=== PATIENT | male | born 1940 | race Caucasian/White ===

== ENCOUNTER 2019-10-21 13:06 | Outpatient (CLI) | payer MEDICARE ==
--- NOTE | 2019-10-21 16:51 | CT ---
EXAM: CT NECK SOFT TISSUE POST CONTRAST: HISTORY:Right ear scar with lumps in the right neck. COMPARISON:None CORRELATION:None FINDINGS: Brain parenchyma: No pathologic enhancement of the visualized brain parenchyma. [place]: There is asymmetric dilatation of the right carotid terminus. There is prominence o f the right M1 segment with respect to the contralateral side. There is a possible fusiform aneurysm involving the right M1 terminus/right MCA bifurcation, incompletely evaluated (axial image # 26, coronal image 45 and sagittal image 33). Sinuses: Adequate aeration of the visualized paranasal sinuses and mastoid air cells. Orbits: Bilateral ocular lens implants are appropriate located. Both globes are intact. Retrobulbar f at is preserved. There is asymmetric prominence of the right ophthalmic vein. 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 Conventional angiography i s recommended. Coronal images do suggest possible dehiscence of the roof of the right orbit (coronal images 39 and 40). Nasopharynx:Adequate aeration. No mucosal abnormality. Oral cavity:Aerodigestive tract is patent. No mucosal abnormality. Limited evaluation of the oral cav ity due to dental amalgam artifact. Midline fatty raphae of the tongue is preserved. Hypopharynx: No mucosal abnormality. Larynx: No mucosal abnormality. Paraspinal muscles: Symmetric attenuation of the paraspinal muscles and symmetric attenuation of the sternocleidomastoid muscles.. Parotid and salivary glands: Symmetric attenuation of the parotid and submandibular glands Thyroid gland: Unremarkable. Spine: Vertebral body height is maintained. No fracture. No significant central canal stenosis or sig nificant neural foraminal narrowing. Limited evaluation due to technique. Lymph nodes: Enlarged, necrotic right level V lymph node deep to the sternocleidomastoid muscle measu res 4.2 x 2.9 cm. Lung apices and upper mediastinum: Groundglass opacities and bilateral pleural effusions. There are e nlarged mediastinal lymph nodes, incompletely evaluated. Subcarinal lymphadenopathy is also noted. There is left axillary lymphadenopathy. IMPRESSION: 1. 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 Based on CT, a definite mucosal-based lesion is not appreciated. Direct visualization with ENT consultation is recommended 2. Possible dehiscence of the root of the right orbit with a vascular connection between a branch of the right middle cerebral artery and a ophthalmic artery. There is resultant dilatation of the right ophthalmic vein. Conventional angiography is recommended. Results conveyed to Dr. Kevin Funez 10/22/2019 at 11:42 AM Code CR Transcribed Date/Time: 10/21/2019 5:39 PM
== END 2019-10-21 13:07 | disposition home or self-care (01) ==
LOC: SCSCT 13:06
PROVIDERS: ATTEND Radiology Radiation Oncology
DX: C44.222 Squamous cell carcinoma of skin of right ear and external auricular canal (principal); C77.0 Secondary and unspecified malignant neoplasm of lymph nodes of head, face and neck; I86.8 Varicose veins of other specified sites; R59.0 Localized enlarged lymph nodes
CPT/HCPCS: 70490

== ENCOUNTER 2019-10-30 08:12 | Day surgery (SDC) | payer MEDICARE ==
[2019-10-30] MEDS ORDERED: Sodium Bicarbonate 2.5 MEQ/5 ML VIAL ONE (08:56)
[2019-10-30] MEDS ORDERED: Lidocaine 1% PF 5 ML VIAL ONE (08:56)
[2019-10-30 11:55] VITALS: BP 142/86; TEMP 97.6
[2019-10-30 12:06] VITALS: BMI 23.5
--- NOTE | 2019-11-03 14:45 | ULT ---
"PRELIMINARY REPORT" PROCEDURE: Ultrasound-guided biopsy/fine-needle aspiration of large necrotic lymph node right neck Ultrasound guided biopsy/fine-needle aspiration of right inguinal lymph node PROVIDED CLINICAL HISTORY: Patient with history of squamous cell carcinoma. Patient currently has large necrotic right neck lymp h node and bilateral inguinal lymphadenopathy. Biopsy of the large necrotic lymph node is well as a more superficial lymph node right inguinal region was requested. COMPARISON: CT abdomen and pelvis on 10/26/2019 TECHNIQUE: The procedure including the risks and complications were explained to the patient and the patient's d linnea, and informed consent was obtained. Limited sonographic evaluation of the right neck was performed demonstrating a large necrotic lesion. Patient was placed in left lateral decubitus positio n, and the right neck was meticulously prepped and draped in usual sterile fashion. The skin and subcutaneous tissues were infiltrated with buffered 1% lidocaine for local anesthesia at the intended puncture site. Utilizing concurrent real-time ultrasound guidance, a 20-gauge Franseen needle was advanced, and tissue as well as small amount of fluid was obtained. Initial touch prep indicated necr otic material with occasional atypical cell. As a result, a total of two 25-gauge fine-needle aspiration specimens were obtained followed by an additional fine-needle aspiration with 20-gauge Fra nseen needle. Hemostasis was achieved with direct pressure, and a dry sterile dressing was placed.. Patient was then placed in the supine position, and limited ultrasound of the right inguinal region w as performed. A few lymph nodes are seen in the right inguinal region with a more easily accessible superficial lymph node in the right inguinal region. The area was marked and meticulously prepped and draped in usual sterile fashion. Skin and subcutaneous tissues were infiltrated with buffered 1% lidocaine for local anesthesia at the intended puncture site. A small skin incision was made. Utilizi ng concurrent real-time ultrasound guidance, a total of three 20-gauge fine-needle aspiration specimens were obtained utilizing a 20-gauge Franseen needle. After the needle was removed, hemostasi s was achieved with direct pressure, and a dry sterile dressing was placed. Patient tolerated the procedure well and without immediate complication. Patient was discharged in st able condition. IMPRESSION: 1. Technically successful ultrasound-guided fine-needle aspiration of a large necrotic lymph node rig ht neck as well as a right inguinal lymph node. Initial touch preps from the fine-needle aspiration of the large necrotic lymph node demonstrated necrotic material with occasional atypical cell. Final pathology report is pending. Transcribed Date/Time: 11/03/2019 2:45 PM
== END 2019-10-30 10:30 | disposition home or self-care (01) ==
LOC: ULT 08:12
PROVIDERS: ATTEND Radiology Radiation Oncology
PROC: 07BH3ZX Excision of Right Inguinal Lymphatic, Percutaneous Approach, Diagnostic (ICD-10-PCS; principal; 2019-10-30)
PROC: 07B13ZX Excision of Right Neck Lymphatic, Percutaneous Approach, Diagnostic (ICD-10-PCS; 2019-10-30)
DX: I88.9 Nonspecific lymphadenitis, unspecified (principal); R59.0 Localized enlarged lymph nodes; I10 Essential (primary) hypertension; C44.222 Squamous cell carcinoma of skin of right ear and external auricular canal; Z87.891 Personal history of nicotine dependence; Z79.899 Other long term (current) drug therapy
CPT/HCPCS: 38505; 88172; 88173; 88177; 88184; 88305

== ENCOUNTER 2019-12-01 09:15 | Day surgery (SDC) | payer MEDICARE ==
[~2019-12-01 09:15] MED LIST: CARBOPLATIN IVPB SCH; Dexamethasone Sod Phosphate 10 MG, Ondansetron 2MG/ML MDV 10 MG in Sodium Chloride 0.9%... IVPB SCH; PACLitaxel 100 MG in Sodium Chloride 0.9% 250 ML 250 ML IVPB SCH; SODIUM CHLORIDE 0.9% IVPB SCH
[2019-12-01] MEDS ORDERED: Sodium Chloride 0.9% 20 ML ONE (09:44)
[2019-12-01 11:08] VITALS: BP 131/68; TEMP 98.6
== END 2019-12-01 14:16 | disposition home or self-care (01) ==
LOC: ONC/OP 09:15
PROVIDERS: ATTEND Internal Medicine Hematology & Oncology
DX: Z51.11 Encounter for antineoplastic chemotherapy (principal); C44.222 Squamous cell carcinoma of skin of right ear and external auricular canal; C83.05 Small cell B-cell lymphoma, lymph nodes of inguinal region and lower limb
CPT/HCPCS: 36415; 80053; 96375; 96413; 96417; J1100; J2405; J7050; J9045; J9267

== ENCOUNTER 2019-12-08 09:06 | Day surgery (SDC) | payer MEDICARE ==
[~2019-12-08 09:06] MED LIST changes: +Sodium Chloride 0.9% 1,000 ML IV SCH
[2019-12-08] MEDS ORDERED: Sodium Chloride 0.9% 20 ML ONE (09:10)
[2019-12-08 09:47] VITALS: BP 111/60; TEMP 98.7
== END 2019-12-08 12:34 | disposition home or self-care (01) ==
LOC: ONC/OP 09:06
PROVIDERS: ATTEND Internal Medicine Hematology & Oncology
DX: Z51.11 Encounter for antineoplastic chemotherapy (principal); C83.05 Small cell B-cell lymphoma, lymph nodes of inguinal region and lower limb; C44.222 Squamous cell carcinoma of skin of right ear and external auricular canal
CPT/HCPCS: 96361; 96375; 96413; 96417; J1100; J2405; J7050; J9045; J9267

== ENCOUNTER 2019-12-15 09:45 | Day surgery (SDC) | payer MEDICARE, OTHER ==
[~2019-12-15 09:45] MED LIST changes: -Sodium Chloride 0.9% 1,000 ML IV SCH
[2019-12-15] MEDS ORDERED: Sodium Chloride 0.9% 20 ML ONE (09:52)
[2019-12-15 10:38] VITALS: BP 103/60; TEMP 97.5
== END 2019-12-15 13:24 | disposition home or self-care (01) ==
LOC: ONC/OP 09:45
PROVIDERS: ATTEND Internal Medicine Hematology & Oncology
DX: Z51.11 Encounter for antineoplastic chemotherapy (principal); C44.222 Squamous cell carcinoma of skin of right ear and external auricular canal; C83.05 Small cell B-cell lymphoma, lymph nodes of inguinal region and lower limb
CPT/HCPCS: 36415; 80053; 96375; 96413; 96417; J1100; J2405; J7050; J9045; J9267

== ENCOUNTER 2019-12-22 09:42 | Day surgery (SDC) | payer MEDICARE, OTHER ==
[2019-12-22 11:39] VITALS: BP 114/60; TEMP 98.2
== END 2019-12-22 13:18 | disposition home or self-care (01) ==
LOC: ONC/OP 09:42
PROVIDERS: ATTEND Internal Medicine Hematology & Oncology
DX: Z51.11 Encounter for antineoplastic chemotherapy (principal); C44.222 Squamous cell carcinoma of skin of right ear and external auricular canal; C83.05 Small cell B-cell lymphoma, lymph nodes of inguinal region and lower limb
CPT/HCPCS: 77386; 96411; 96413; 96417; J1100; J2405; J7050; J9045; J9267

== ENCOUNTER 2019-12-29 09:20 | Day surgery (SDC) | payer MEDICARE, OTHER ==
[2019-12-29] MEDS ORDERED: Sodium Chloride 0.9% 1,000 ML IV SCH (09:30)
[2019-12-29] MEDS ORDERED: Sodium Chloride 0.9% 20 ML ONE (09:32)
[2019-12-29 10:08] VITALS: BP 108/56; TEMP 97.7
== END 2019-12-29 13:29 | disposition home or self-care (01) ==
LOC: ONC/OP 09:20
PROVIDERS: ATTEND Internal Medicine Hematology & Oncology
DX: Z51.11 Encounter for antineoplastic chemotherapy (principal); C44.222 Squamous cell carcinoma of skin of right ear and external auricular canal; C83.05 Small cell B-cell lymphoma, lymph nodes of inguinal region and lower limb
CPT/HCPCS: 77386; 80053; 96361; 96375; 96413; 96417; J1100; J2405; J7050; J9045; J9267

== ENCOUNTER 2020-01-08 09:48 | Day surgery (SDC) | payer MEDICARE, OTHER | END 2020-01-08 13:54 | disposition home or self-care (01) | LOC: ONC/OP 09:48 | PROVIDERS: ATTEND Internal Medicine Hematology & Oncology | DX: Z51.11 Encounter for antineoplastic chemotherapy (principal); C44.222 Squamous cell carcinoma of skin of right ear and external auricular canal; C83.05 Small cell B-cell lymphoma, lymph nodes of inguinal region and lower limb | CPT/HCPCS: 77386; 80048; 96375; 96413; 96417; J1100; J2405; J7050; J9045; J9267 ==

== ENCOUNTER 2020-03-25 20:08 | Inpatient (IN) | payer MEDICARE ==
[~2020-03-25 20:08] MED LIST changes: -CARBOPLATIN IVPB SCH; -Dexamethasone Sod Phosphate 10 MG, Ondansetron 2MG/ML MDV 10 MG in Sodium Chloride 0.9%... IVPB SCH; +Iopamidol-370 76% 500 ML 1 ML ONE; -PACLitaxel 100 MG in Sodium Chloride 0.9% 250 ML 250 ML IVPB SCH; -SODIUM CHLORIDE 0.9% IVPB SCH
[2020-03-25] MEDS ORDERED: Ondansetron PF 4 MG/2 ML Vial ONE (20:48)
[2020-03-25 20:52] LABS: #Lymphocytes 1.3 thou/uL (1.20-3.40); #Monocytes 0.9 thou/uL (0.11-0.59); #Neutrophils 5.3 thou/uL (1.40-6.50); %Basophils 0.4 % (0.0-1.0); %Eosinophils 0.5 % (0.0-10.0); %Lymphocytes 17.7 % (21.0-51.0); %Monocytes 11.5 % (0.0-10.0); Hemoglobin 11.8 g/dL (14.0-18.0); Mean Corpuscular HGB CONC 33.2 g/dL (32.0-36.0); Mean Corpuscular Hemoglobin 31.7 pg (27.0-31.0); Mean Corpuscular Volume 95.5 fL (78.0-98.0); Mean Platelet Volume 7.4 fL (7.4-10.4); Platelet Count 283 thou/uL (130-400); RBC Distribution Width 14.3 % (11.5-14.5); Red Blood Cell (RBC) Count 3.71 mill/uL (4.70-6.10); White Blood Cell (WBC) Count 7.5 thou/uL (4.8-10.8)
--- NOTE | 2020-03-25 20:52 | RAD ---
EXAM: CHEST ONE VIEW PORTABLE: 03/25/20 HISTORY: Nausea and vomiting. Constipation. COMPARISON: 03/20/20. Postop midline sternotomy. Extensive tortuosity and ectatic changes of the thoracic aorta, evidence f or changes from a prior dissection. No confluent pneumonia, overt edema, or pleural effusion. IMPRESSION: Postop midline sternotomy. Mild cardiomegaly. Fairly extensive stable chronic dilatation of the desc ending aorta. Evidence for chronic dissection documented on prior CT. POS: RRE
[2020-03-25 21:20] LABS: ALT (SGPT) 13 U/L (8-55); AST (SGOT) 18 U/L (5-34); Albumin 3.2 g/dL (3.4-4.8); Alkaline Phosphatase 74 U/L (40-110); Anion Gap 22 mmol/L (10-20); BUN (Urea Nitrogen) 35 mg/dL (8.4-25.7); Bilirubin, Total 1.2 mg/dL (0.2-1.2); Calc. Creatinine Clearance 0 mL/min (70-130); Calcium 8.8 mg/dL (7.8-10.44); Carbon Dioxide 20 mmol/L (23-31); Chloride 95 mmol/L (98-107); Globulin 3.5 g/dL (2.4-3.5); Glucose 102 mg/dL (83-110); Lipase 18 U/L (8-78); Potassium 3.7 mmol/L (3.5-5.1); Protein, Total 6.7 g/dL (5.8-8.1); Sodium 133 mmol/L (136-145)
[2020-03-25] MEDS ORDERED: Acetaminophen 500 MG TAB ONE ×2 (21:57→22:01)
[2020-03-25] MEDS ORDERED: Acetaminophen 650 MG Suppository ONE (21:59)
--- NOTE | 2020-03-25 22:06 | CT ---
CT Abdomen Pelvis W Con: 03/25/2020 9:40 PM CLINICAL INFORMATION: Abdominal pain and vomiting COMPARISON: 03/20/2020 TECHNIQUE: Multiple contiguous axial images were obtained and a CT of the abdomen and pelvis with IV contrast. C oronal and sagittal reformats were performed. FINDINGS: Lower Chest: Left lower lobe calcified granuloma Abdomen: Liver: Scattered calcified granulomas. Bile Ducts: Normal caliber. Gallbladder: Contracted around gallstones Pancreas: within normal limits. Spleen: within normal limits. Adrenals: within normal limits. Kidneys: Bilateral renal cysts measuring up to 4.2 cm in size. Pelvis: Reproductive Organs: No pelvic masses. Ureters: within normal limits. Bladder: within normal limits. Peritoneum: No ascites or free air, no fluid collection. Bowel: Multiple enlarged small bowel loops are seen in the abdomen. A transition point is again seen in the right lower quadrant of the abdomen. Normal appendix. Scattered diverticula in the colon. Mesentery and Retroperitoneum: No enlarged mesenteric or retroperitoneal lymph nodes. Vessels: There is stable aneurysmal dilatation of the aorta measuring 5.8 cm in greatest dimension. T here is a stable dissection of the abdominal aorta extending into the common iliac arteries. Abdominal Wall: Stable 3.5 cm left inguinal hernia containing sigmoid colon. Bones: Degenerative changes in the spine. IMPRESSION: 1. Small bowel obstruction with transition point in the right lower quadrant of the abdomen. 2. Stable aortic dissection and aneurysm 3. Stable left inguinal hernia 4. Bilateral renal cysts 5. Cholelithiasis 6. Diverticulosis
--- NOTE | 2020-03-25 23:02 | RAD ---
EXAM: Single view of the chest HISTORY: Vomiting and hiccups. NG tube placement COMPARISON: 03/25/2020 at 8:41 PM FINDINGS: Single view of the chest shows an enlarged but stable cardiomediastinal silhouette. The aor ta appears prominent. The patient is status post sternotomy. Diffuse increased visual markings are present. There is an NG tube with its tip coursing off the inferior aspect of the film. No acute osse ous abnormality. IMPRESSION: NG tube likely located in the stomach.
[2020-03-25] MEDS ORDERED: Sodium Chloride 0.9% 1,000 ML IV SCH (23:45)
[2020-03-26 00:14] VITALS: BMI 24.0
[2020-03-26] MEDS ORDERED: Labetalol HCl 100 MG/20 ML VIAL SLOW IVP PRN (01:08)
[2020-03-26] MEDS ORDERED: Acetaminophen 325 MG TAB PO PRN (01:08)
[2020-03-26] MEDS ORDERED: hydrALAZINE 20 MG/ML VIAL SLOW IVP PRN (01:08)
[2020-03-26] MEDS ORDERED: Guaifenesin DM 100-10/5 ML UDCUP PO PRN (01:08)
[2020-03-26] MEDS ORDERED: cloNIDine 0.1 MG TAB PO PRN (01:08)
[2020-03-26] MEDS ORDERED: HYDROcodone/Acetaminophen 5/325 mg Tablet PO PRN (01:08)
[2020-03-26] MEDS ORDERED: Promethazine HCl 12.5 MG in Sodium Chloride 0.9% 50 ML IVPB PRN (01:14)
[2020-03-26] MEDS ORDERED: Ondansetron PF 4 MG/2 ML Vial IVP PRN (01:14)
[2020-03-26] MEDS ORDERED: Electrolyte Replacement Protocol 1 EACH FS SCH (01:15)
--- NOTE | 2020-03-26 01:17 | PDOC.HHP ---
Hospitalist JAMESON Abdominal pain History of Present Illness: Patient is an 79 year old male with PMH skin cancer who presents to ED for constipation, abdominal pain. Patient was admitted at [facility] earlier this week for small bowel obstruction, did not actually have a BM but had an enema and NGT and was discharged after 3 days without surgery. He failed to improve at home and returned to ED today. He has been vomiting, reports abdominal pain. Last BM was a week ago. In ED, Dr Mercado of surgery called and will follow with us, he recommended NGT which was placed. vitals w/ pulse 100, Tmax 102. Ct A/P confirmed continued SBO. Allergies/Adverse Reactions: Allergy/AdvReac Type Severity Reaction Status Date / Time No Known Drug Allergies Allergy Verified 03/26/20 00:15 Home Medications: Medication Instructions Recorded Confirmed Type Ibuprofen 800 mg PO Q8HR PRN 10/30/19 03/26/20 History Lisinopril [Zestril] 20 mg PO DAILY 10/30/19 03/26/20 History Polyethylene Glycol 3350 [Miralax] 17 gm PO DAILY PRN #30 pk 03/22/20 03/26/20 Rx Prochlorperazine 25 mg RC DAILY 03/26/20 03/26/20 History Past History: PMHx: skin cancer, and "swollen lymph node" poss lymphoma-radiation last tx 10 weeks ago. PSHx: HEART SX, SON SAYS IT WAS TEARS 10 YEARS AGO. FHx: reviewed no relevant FH Social: Patient denies alcohol use, Patient denies drug use, Patient has no smoking history, Lives at home, alone. Hospitalist JAMESON SIMONS Constitutional: reports: fever, chills. denies: sweats, weakness, malaise, other Eyes: denies: pain, vision change, conjunctivae inflammation, eyelid inflammation, redness, other ENT: denies: ear pain, ear discharge, nose pain, nose discharge, nose congestion, mouth pain, mouth swelling, throat pain, throat swelling, other Respiratory: denies: cough, dry, shortness of breath, hemoptysis, SOB with excertion, pleuritic pain, sputum, wheezing, other Cardiovascular: denies: chest pain, palpitations, orthopnea, paroxysmal noc. dyspnea, edema, light headedness, other Gastrointestinal: reports: nausea, vomiting, abdominal pain, constipation. denies: diarrhea, melena, hematochezia, other Genitourinary: denies: dysuria, frequency, incontinence, hematuria, retention, other Musculoskeletal: denies: neck pain, shoulder pain, arm pain, back pain, hand pain, leg pain, foot pain, other Skin: denies: rash, lesions, clover, bruising, other Neurological: denies: weakness, numbness, incoordination, change in speech, confusion, seizures, other All other systems reviewed; all pertinent +/- noted in HPI/Subj Hospitalist Exam Vitals: Vital Signs (12 hours) Temp Pulse Resp BP Pulse Ox 03/26/20 00:13 97.4 F L 94 18 109/61 95 Weight Weight 153 lb 9.6 oz General Appearance: NAD, awake alert Eye: PERRL, anicteric sclera ENT: normocephalic atraumatic, no oropharyngeal lesions, moist mucosa Neck: supple, symmetric, no JVD, no thyromegaly, no lymphadenopathy, no carotid bruit Heart: RRR, no murmur, no gallops, no rubs, normal peripheral pulses Respiratory: CTAB, no wheezes, no rales, no ronchi, normal chest expansion, no tachypnea, normal percussion Gastrointestinal: soft, no palpable masses, no hepatomegaly, no splenomegaly, no bruit, no guarding, no rigidity, tender to palpation, distended Extremities: no cyanosis, no clubbing, no edema Skin: normal turgor, no lesions, no rashes Neurological: cranial nerve grossly intact, normal sensation to touch, no weakness, no focal deficits, no new deficit Musculoskeletal: normal tone, normal strength, no muscle wasting Psychiatric: normal affect, normal behavior, A&O x 3 Hospitalist Results Result Diagrams: 03/25/20 20:36 03/25/20 20:36 Lab results: Laboratory Last Values WBC 7.5 thou/uL (4.8-10.8) 03/25/20 20:36 RBC 3.71 mill/uL (4.70-6.10) L 03/25/20 20:36 Hgb 11.8 g/dL (14.0-18.0) L 03/25/20 20:36 Hct 35.5 % (42.0-52.0) L 03/25/20 20:36 MCV 95.5 fL (78.0-98.0) 03/25/20 20:36 MCH 31.7 pg (27.0-31.0) H 03/25/20 20:36 MCHC 33.2 g/dL (32.0-36.0) 03/25/20 20:36 RDW 14.3 % (11.5-14.5) 03/25/20 20:36 Plt Count 283 thou/uL (130-400) 03/25/20 20:36 MPV 7.4 fL (7.4-10.4) 03/25/20 20:36 Neutrophils % 70.0 % (42.0-75.0) 03/25/20 20:36 Lymphocytes % 17.7 % (21.0-51.0) L 03/25/20 20:36 Monocytes % 11.5 % (0.0-10.0) H 03/25/20 20:36 Eosinophils % 0.5 % (0.0-10.0) 03/25/20 20:36 Basophils % 0.4 % (0.0-1.0) 03/25/20 20:36 Neutrophils # 5.3 thou/uL (1.40-6.50) 03/25/20 20:36 Lymphocytes # 1.3 thou/uL (1.20-3.40) 03/25/20 20:36 Monocytes # 0.9 thou/uL (0.11-0.59) H 03/25/20 20:36 Eosinophils # 0.0 thou/uL (0.0-0.7) 03/25/20 20:36 Basophils # 0.0 thou/uL (0.0-0.2) 03/25/20 20:36 Sodium 133 mmol/L (136-145) L 03/25/20 20:36 Potassium 3.7 mmol/L (3.5-5.1) 03/25/20 20:36 Chloride 95 mmol/L (98-107) L 03/25/20 20:36 Carbon Dioxide 20 mmol/L (23-31) L 03/25/20 20:36 Anion Gap 22 mmol/L (10-20) H 03/25/20 20:36 BUN 35 mg/dL (8.4-25.7) H 03/25/20 20:36 Creatinine 1.53 mg/dL (0.7-1.3) H 03/25/20 20:36 Estimated GFR (MDRD) 44 03/25/20 20:36 Glucose 102 mg/dL (83-110) 03/25/20 20:36 Calcium 8.8 mg/dL (7.8-10.44) 03/25/20 20:36 Total Bilirubin 1.2 mg/dL (0.2-1.2) 03/25/20 20:36 AST 18 U/L (5-34) 03/25/20 20:36 ALT 13 U/L (8-55) 03/25/20 20:36 Alkaline Phosphatase 74 U/L (40-110) 03/25/20 20:36 Serum Total Protein 6.7 g/dL (5.8-8.1) 03/25/20 20:36 Albumin 3.2 g/dL (3.4-4.8) L 03/25/20 20:36 Globulin 3.5 g/dL (2.4-3.5) 03/25/20 20:36 Albumin/Globulin Ratio 0.9 g/dL (1.2-2.2) L 03/25/20 20:36 Lipase 18 U/L (8-78) 03/25/20 20:36 Additional comment: labs, imaging reports, ED documents reviewed Hospitalist H&P A/P Plan: Patient is an 79 year old male with PMH skin cancer who presents to ED for constipation, abdominal pain. # abdominal pain # nausea, vomiting # small bowel obstruction Patient was admitted at [place] earlier this week for small bowel obstruction, did not have a BM but had an enema and NGT and was discharged after 3 days without surgery. He failed to improve at home and returned to ED today. He has been vomiting, reports abdominal pain. Last BM was a week ago. In ED, Dr Mercado of surgery called and will follow with us, he recommended NGT which was placed. vitals w/ pulse 100, Tmax 102. Ct A/P confirmed continued SBO. - admit to floor - consult surgery - NPO - IVF - monitor closely, no indications for emergent surgery - NGT to [facility] - PRN pain and nausea medications # hyponatremia # metabolic acidosis # NUNO - suspect due to dehydration, vomiting, poor PO intakte last week - IVF, treat SBO as above # DVT/GI ppx
[2020-03-26] MEDS: Sodium Chloride 0.9% 1,000 ML IV SCH ×2 (03:57→13:57)
[2020-03-26 05:41] LABS: Anion Gap 16 mmol/L (10-20); BUN (Urea Nitrogen) 35 mg/dL (8.4-25.7); Calc. Creatinine Clearance 44 mL/min (70-130); Calcium 7.6 mg/dL (7.8-10.44); Carbon Dioxide 22 mmol/L (23-31); Chloride 99 mmol/L (98-107); Glucose 88 mg/dL (83-110); Magnesium 1.7 mg/dL (1.6-2.6); Potassium 3.1 mmol/L (3.5-5.1); Sodium 134 mmol/L (136-145)
[2020-03-26] MEDS ORDERED: Magnesium 2 GM/50 ML 2 GM in Premix Bag 1 BAG IVPB SCH (08:30)
[2020-03-26 08:33] LABS: Phosphorus 4.7 mg/dL (2.3-4.7)
[2020-03-26] MEDS: D5 1/2 NS w/20 mEq KCL 1,000 ML IV SCH ×3 (08:34→21:05)
--- NOTE | 2020-03-26 08:46 | CON ---
DATE OF CONSULTATION: 03/26/2020 CHIEF COMPLAINT: Small bowel obstruction. HISTORY OF PRESENT ILLNESS: This is an 79-year-old male, who was recently discharged from the [facility] for similar symptoms. He presents to the emergency room last night with nausea, abdominal bloating. This is associated with diffuse abdominal pain. The pain is described as dull ache. They were thinking at his previous hospitalization this maybe related to constipation. It has been a week since he has had a bowel movement, admitted to the hospital overnight. He is hemodynamically stable. He is more comfortable and soft this morning. The patient is severely hearing impaired and that makes the history taking very difficult. PAST MEDICAL HISTORY: Includes squamous cell cancer, currently undergoing chemoradiation and includes aortic aneurysm. PAST SURGICAL HISTORY: Open heart surgery. SOCIAL HISTORY: No smoking or alcohol. Lives at home. HOME MEDICATIONS: 1. Lisinopril. 2. MiraLAX. 3. Ibuprofen. REVIEW OF SYSTEMS: 10-system review of systems is otherwise negative unless described above. PHYSICAL EXAMINATION: VITAL SIGNS: Pulse is 88, respirations are 16, blood pressure is 95/57. He is afebrile. NG tube 600 mL overnight. CHEST: Clear. HEART: Regular rate. ABDOMEN: Soft, nontender, nondistended. No abdominal or no obvious hernias present. EXTREMITIES: No ischemia or edema to extremities. LABORATORY DATA: White blood cell count last night was 7, creatinine 1.3. CT scan shows aortic aneurysm, dilated small bowel distally decompressed, nonobstructing left inguinal hernia, but has some sigmoid colon in it, but does not appear obstructed. ASSESSMENT: Small bowel obstruction. PLAN: NG tube today. Gastrografin small-bowel follow-through tomorrow. 45 minutes spent in seeing patient, review of x-rays, and discussion. Job ID: [id number]
[2020-03-26 09:06] LABS: Band 12 % (5-11); Eosinophils 2 % (0-10); Hemoglobin 9.3 g/dL (14.0-18.0); Lymphocytes 14 % (21-51); MDiff Complete? YES; Mean Corpuscular HGB CONC 33.6 g/dL (32.0-36.0); Mean Corpuscular Hemoglobin 32.4 pg (27.0-31.0); Mean Corpuscular Volume 96.5 fL (78.0-98.0); Mean Platelet Volume 7.1 fL (7.4-10.4); Monocytes 13 % (0-10); Neutrophil 59 % (42-75); Platelet Count 199 thou/uL (130-400); RBC Distribution Width 14.4 % (11.5-14.5); Red Blood Cell (RBC) Count 2.86 mill/uL (4.70-6.10); White Blood Cell (WBC) Count 5.2 thou/uL (4.8-10.8)
[2020-03-26 11:48] LABS: SARS-CoV-2 PCR by NAA Not Detected (NotDetected)
[2020-03-26] MEDS ORDERED: Potassium Chloride 40 MEQ in Sodium Chloride 0.9% 250 ML 250 ML IVPB SCH (12:00)
[2020-03-26] MEDS: MEROPENEM 1 GM/50 ML 1 GM in Premix Bag 1 BAG IVPB SCH ×2 (13:54→21:04)
[2020-03-26 14:57] LABS: Lactic Acid 0.6 mmol/L (0.5-2.2)
[2020-03-26 15:01] LABS: Anion Gap 15 mmol/L (10-20); BUN (Urea Nitrogen) 32 mg/dL (8.4-25.7); CRP (Inflammatory) 12.63 mg/dL (= or < 0.5); Calc. Creatinine Clearance 52 mL/min (70-130); Calcium 7.8 mg/dL (7.8-10.44); Carbon Dioxide 22 mmol/L (23-31); Chloride 100 mmol/L (98-107); Glucose 102 mg/dL (83-110); Potassium 3.5 mmol/L (3.5-5.1); Sodium 133 mmol/L (136-145)
[2020-03-26] MEDS: Enoxaparin Sodium 40 MG/0.4 ML SYRINGE SC SCH (19:49)
[2020-03-27] MEDS: MEROPENEM 1 GM/50 ML 1 GM in Premix Bag 1 BAG IVPB SCH ×3 (05:15→21:01)
[2020-03-27] MEDS: D5 1/2 NS w/20 mEq KCL 1,000 ML IV SCH ×2 (05:16→16:11)
[2020-03-27 07:12] LABS: #Eosinphils 0.1 thou/uL (0.0-0.7); #Lymphocytes 0.7 thou/uL (1.20-3.40); #Monocytes 0.8 thou/uL (0.11-0.59); #Neutrophils 3.5 thou/uL (1.40-6.50); %Basophils 0.4 % (0.0-1.0); %Lymphocytes 14.6 % (21.0-51.0); %Monocytes 14.9 % (0.0-10.0); %Neutrophils 69.1 % (42.0-75.0); Hemoglobin 9.6 g/dL (14.0-18.0); Mean Corpuscular HGB CONC 32.7 g/dL (32.0-36.0); Mean Corpuscular Hemoglobin 31.5 pg (27.0-31.0); Mean Corpuscular Volume 96.3 fL (78.0-98.0); Mean Platelet Volume 7.2 fL (7.4-10.4); Platelet Count 197 thou/uL (130-400); RBC Distribution Width 14.5 % (11.5-14.5); Red Blood Cell (RBC) Count 3.03 mill/uL (4.70-6.10); White Blood Cell (WBC) Count 5.1 thou/uL (4.8-10.8)
[2020-03-27 07:32] LABS: Anion Gap 13 mmol/L (10-20); BUN (Urea Nitrogen) 24 mg/dL (8.4-25.7); Calc. Creatinine Clearance 61 mL/min (70-130); Calcium 7.6 mg/dL (7.8-10.44); Carbon Dioxide 24 mmol/L (23-31); Chloride 103 mmol/L (98-107); Glucose 124 mg/dL (83-110); Magnesium 1.9 mg/dL (1.6-2.6); Potassium 3.6 mmol/L (3.5-5.1); Sodium 136 mmol/L (136-145)
[2020-03-27] MEDS ORDERED: Magnesium 2 GM/50 ML 2 GM in Premix Bag 1 BAG IVPB SCH (09:00)
[2020-03-27] MEDS: Morphine 2 MG/ML VIAL SLOW IVP PRN ×4 (09:34→21:00)
--- NOTE | 2020-03-27 15:40 | PRG ---
DATE OF SERVICE: 03/27/2020 SUBJECTIVE: Mr. Duran has had a small bowel follow through, started to have a lot of diarrhea stools this afternoon. He did have delayed emptying into the colon at 4 hours, there was still no contrast in the cecum. He is complaining of the diarrhea now. OBJECTIVE: VITAL SIGNS: His pulse is 103, blood pressure 116/73, temperature is 98.9, and his respirations are 14. ABDOMEN: Soft. It is minimally distended, but no rebound tenderness. LABORATORY DATA: White blood cell count is 5 today. No bands. Hemoglobin 9.6, creatinine 0.94. ASSESSMENT: 1. Partial small bowel obstruction, uncertain etiology. Small bowel follow-through is ongoing, although he is having stools now. PLAN: Having bowel movements within 24 hours, small bowel follow-through predicts no need for surgery. We will leave NG tube in reassess him in the morning. Job ID: [id number]
--- NOTE | 2020-03-27 15:57 | PDOC.HOSPP ---
- Subjective Encounter Date: 03/27/20 Encounter Time: 12:30 Subjective: Patient seen and examined for small bowel obstruction. Denies any bowel movements. Abdominal pain controlled with morphine. No fever or chills reported. Denies any chest pain or shortness of breath. - Objective Vital Signs & Weight: Vital Signs (12 hours) Temp Pulse Resp BP Pulse Ox 03/27/20 12:00 98.9 F 103 H 14 116/73 96 03/27/20 11:45 98.7 F 103 H 20 110/70 92 L 03/27/20 08:00 96 03/27/20 07:27 98.0 F 88 18 124/69 96 03/27/20 04:00 98.6 F 92 18 117/63 95 Weight Admit Weight 153 lb 9.6 oz Weight 153 lb 9.6 oz I&O: 03/26/20 03/27/20 03/28/20 06:59 06:59 06:59 Intake Total 1500 Output Total 800 2050 Balance -800 -550 Result Diagrams: 03/27/20 06:28 03/27/20 06:28 Additional Labs: Abnormal Lab Results - Last 48 hrs 03/25/20 20:36: Sodium 133 L, Chloride 95 L, Carbon Dioxide 20 L, Anion Gap 22 H, BUN 35 H, Creatinine 1.53 H, Albumin 3.2 L, Albumin/Globulin Ratio 0.9 L 03/25/20 20:36: RBC 3.71 L, Hgb 11.8 L, Hct 35.5 L, MCH 31.7 H, Lymphocytes % 17.7 L, Monocytes % 11.5 H, Monocytes # 0.9 H 03/26/20 05:01: Sodium 134 L, Potassium 3.1 L, Carbon Dioxide 22 L, BUN 35 H, Calcium 7.6 L 03/26/20 05:01: RBC 2.86 L, Hgb 9.3 L, Hct 27.5 L, MCH 32.4 H, MPV 7.1 L, Band Neuts % (Manual) 12 H, Lymphocytes % (Manual) 14 L, Monocytes % (Manual) 13 H 03/26/20 14:06: Sodium 133 L, Carbon Dioxide 22 L, BUN 32 H, C-Reactive Protein 12.63 H 03/27/20 06:28: Calcium 7.6 L 03/27/20 06:28: RBC 3.03 L, Hgb 9.6 L, Hct 29.2 L, MCH 31.5 H, MPV 7.2 L, Lymphocytes % 14.6 L, Monocytes % 14.9 H, Lymphocytes # 0.7 L, Monocytes # 0.8 H Radiology Reviewed by me: Yes (CT abdomensmall bowel obstruction) Hospitalist ROS - Review of Systems Respiratory: denies: cough, dry, shortness of breath, hemoptysis, SOB with excertion, pleuritic pain, sputum, wheezing, other Cardiovascular: denies: chest pain, palpitations, orthopnea, paroxysmal noc. dyspnea, edema, light headedness, other - Medication Medications: Active Medications Generic Name Dose Route Start Last Admin Trade Name Freq PRN Reason Stop Dose Admin Enoxaparin Sodium 40 mg 03/26/20 21:00 03/26/20 19:49 Enoxaparin Sodium 40 Mg/0.4 Ml Syringe SC 40 mg 2100 DAVE Administration Potassium Chloride/Dextrose/Sod Cl 1,000 mls @ 125 mls/hr 03/26/20 08:15 03/27/20 05:16 D5 1/2 Ns W/20 Meq Kcl IV 1,000 mls .Q8H DAVE Administration Meropenem 1 gm/ Device 50 mls @ 100 mls/hr 03/26/20 14:00 03/27/20 13:25 IVPB 50 mls Q8HR DAVE Administration Morphine Sulfate 2 mg 03/26/20 01:14 03/27/20 13:35 Morphine 2 Mg/Ml Vial SLOW IVP 2 mg Q4H PRN Administration severe pain 4-10 Ondansetron HCl 4 mg 03/26/20 01:14 03/27/20 08:28 Ondansetron Pf 4 Mg/2 Ml Vial IVP 4 mg Q6H PRN Administration Nausea/Vomiting use 1st Hospitalist Exam Vitals: Vital Signs (12 hours) Temp Pulse Resp BP Pulse Ox 03/27/20 12:00 98.9 F 103 H 14 116/73 96 03/27/20 11:45 98.7 F 103 H 20 110/70 92 L 03/27/20 08:00 96 03/27/20 07:27 98.0 F 88 18 124/69 96 03/27/20 04:00 98.6 F 92 18 117/63 95 Weight Admit Weight 153 lb 9.6 oz Weight 153 lb 9.6 oz General Appearance: awake alert Neck: supple, no JVD Heart: RRR, no gallops Respiratory: no wheezes, no ronchi Gastrointestinal: soft, no guarding, no rigidity Gastrointestinal - other findings: Bowel sounds present Extremities: no cyanosis, no clubbing Neurological: no new deficit Hosp A/P - Plan DVT proph w/lovenox, DVT proph w/SCDs Patient is a 79-year-old male with recent hospitalization for small bowel obstruction at [place] location was brought in to the emergency room on 03/25 with abdominal pain along with nausea and vomiting. CT scan of the abdomen in the emergency room was consistent with small bowel obstruction with transition point in the right lower quadrant of the abdomen. He was admitted to the surgical floor. He was managed conservatively with n.p.o. status as well as NG tube placement. He underwent small bowel follow-through on 03/27. Impression: Recurrent small bowel obstruction Recent hospitalization for small bowel obstruction at the other location Abdominal pain/nausea/vomiting due to above Hyponatremia Hypokalemia Hypomagnesemia Elevated inflammatory markers Chronic anemia suspected due to nutritional deficiency Metabolic acidosis History of squamous cell cancer History of aortic aneurysm Hypertension Bilateral renal cyst Diverticulosis Cholelithiasis Inguinal hernia Plan: Continue n.p.o. status. Small bowel follow-through. Continue IV fluidsreduce rate to 75 mL/h. Replace electrolytes. Continue empiric antibiotics. Continue meropenem. Continue other medications as above. General surgery input appreciated.
--- NOTE | 2020-03-27 16:06 | RAD ---
Small bowel series: 03/27/2020 HISTORY: 79-year-old male with small bowel obstruction TECHNIQUE: Injection of Gastrografin through existing esophagogastric tube. FINDINGS: There is reflux of contrast up into at least the upper esophagus. Contrast progresses through multiple dilated small bowel loops. At 3 hours, faint contrast material is visualized in multiple nondilated, almost collapsed small juancho l loops in the right side of the abdomen. By 6 hours, this has definitely reached the hepatic flexure of the colon, and there has been interval mild improvement in the dilation of the jejunal loops. IMPRESSION: The small bowel obstruction has improved by the therapeutic Gastrografin, now partial small bowel obs truction or resolved.
[2020-03-27] MEDS: Enoxaparin Sodium 40 MG/0.4 ML SYRINGE SC SCH (21:00)
[2020-03-28] MEDS: D5 1/2 NS w/20 mEq KCL 1,000 ML IV SCH (05:27)
[2020-03-28] MEDS: MEROPENEM 1 GM/50 ML 1 GM in Premix Bag 1 BAG IVPB SCH ×2 (05:27→15:25)
[2020-03-28 06:02] LABS: #Eosinphils 0.1 thou/uL (0.0-0.7); #Lymphocytes 0.8 thou/uL (1.20-3.40); #Monocytes 0.7 thou/uL (0.11-0.59); #Neutrophils 3.6 thou/uL (1.40-6.50); %Basophils 0.3 % (0.0-1.0); %Eosinophils 1.1 % (0.0-10.0); %Lymphocytes 15.7 % (21.0-51.0); %Monocytes 13.6 % (0.0-10.0); %Neutrophils 69.3 % (42.0-75.0); Hemoglobin 9.3 g/dL (14.0-18.0); Mean Corpuscular HGB CONC 33.1 g/dL (32.0-36.0); Mean Corpuscular Hemoglobin 32.8 pg (27.0-31.0); Mean Platelet Volume 7.2 fL (7.4-10.4); Platelet Count 171 thou/uL (130-400); RBC Distribution Width 14.2 % (11.5-14.5); Red Blood Cell (RBC) Count 2.82 mill/uL (4.70-6.10); White Blood Cell (WBC) Count 5.2 thou/uL (4.8-10.8)
[2020-03-28 06:25] LABS: Anion Gap 9 mmol/L (10-20); BUN (Urea Nitrogen) 20 mg/dL (8.4-25.7); Calc. Creatinine Clearance 64 mL/min (70-130); Calcium 7.9 mg/dL (7.8-10.44); Carbon Dioxide 27 mmol/L (23-31); Chloride 107 mmol/L (98-107); Glucose 119 mg/dL (83-110); Magnesium 2.2 mg/dL (1.6-2.6); Potassium 3.4 mmol/L (3.5-5.1); Sodium 140 mmol/L (136-145)
[2020-03-28] MEDS ORDERED: Potassium Phosphate 15 MMOL in Sodium Chloride 0.9% 250 ML 250 ML IVPB SCH (08:30)
--- NOTE | 2020-03-28 08:52 | PRG ---
DATE OF SERVICE: 03/28/2020 SUBJECTIVE: Mr. Duran had bowel movements overnight. No nausea. OBJECTIVE: VITAL SIGNS: He is afebrile. Vital signs are stable. ABDOMEN: Soft, nontender, and nondistended with active bowel sounds. ASSESSMENT: Resolving partial small bowel obstruction. PLAN: Discontinue NG. Allow clears. If he tolerates that, he can probably be discharged. No need for surgical intervention. Job ID: [id number]
[2020-03-28 16:42] VITALS: BP 136/70; TEMP 99
--- NOTE | 2020-03-28 18:28 | PDOC.DS.DS ---
Provider Date of Admission: 03/25/20 22:41 Date of Discharge: 03/28/20 Admitting Provider: Devan Gibson MD Consultations: General Surgery Primary Care Physician: [facility] Hospital Course: Patient is a 79-year-old male with recent hospitalization for small bowel obstruction at [place] location was brought in to the emergency room on 03/25 with abdominal pain along with nausea and vomiting. CT scan of the abdomen in the emergency room was consistent with small bowel obstruction with transition point in the right lower quadrant of the abdomen. He was admitted to the surgical floor. He was managed conservatively with n.p.o. status as well as NG tube placement. He underwent small bowel follow-through on 03/27. He was also seen by general surgery Dr. Crocker. The small bowel follow-through showed resolution of small bowel obstruction. He was started on a clear liquid diet that was transitioned to full liquid diet. He was advised to stay overnight for close monitoring however he insisted on getting discharged. Per patient request and after general surgery approval he was discharged home. He was advised to follow-up with general surgery as outpatient Final diagnosis: Recurrent small bowel obstruction Recent hospitalization for small bowel obstruction at the other location Abdominal pain/nausea/vomiting due to above Hyponatremia Hypokalemia Hypomagnesemia Elevated inflammatory markers Chronic anemia suspected due to nutritional deficiency Metabolic acidosis History of squamous cell cancer History of aortic aneurysm Hypertension Bilateral renal cyst Diverticulosis Cholelithiasis Inguinal hernia Resuscitation Status: 03/26/20 01:08 Resuscitation Status Routine Resuscitation Status: FULL: Full Resuscitation Lab Results: 03/28/20 05:40 03/28/20 05:40 Abnormal Lab Results - Last 48 hrs 03/27/20 06:28: Calcium 7.6 L 03/27/20 06:28: RBC 3.03 L, Hgb 9.6 L, Hct 29.2 L, MCH 31.5 H, MPV 7.2 L, Lymphocytes % 14.6 L, Monocytes % 14.9 H, Lymphocytes # 0.7 L, Monocytes # 0.8 H 03/28/20 05:40: Potassium 3.4 L, Anion Gap 9 L 03/28/20 05:40: RBC 2.82 L, Hgb 9.3 L, Hct 27.9 L, MCV 99.0 H, MCH 32.8 H, MPV 7.2 L, Lymphocytes % 15.7 L, Monocytes % 13.6 H, Lymphocytes # 0.8 L, Monocytes # 0.7 H Vitals: Vital Signs (12 hours) Temp Pulse Resp BP Pulse Ox 03/28/20 15:00 99.0 F 73 20 136/70 94 L 03/28/20 12:01 97.7 F 71 20 119/66 98 03/28/20 07:00 97.5 F L 72 16 118/69 96 Weight Admit Weight 153 lb 9.6 oz Weight 153 lb 9.6 oz Physical Exam: The patient was seen and examined on the day of discharge. Plan Home Medications: Medication Instructions Recorded Confirmed Type Lisinopril [Zestril] 20 mg PO DAILY 10/30/19 03/26/20 History Polyethylene Glycol 3350 [Miralax] 17 gm PO DAILY #30 pk 03/28/20 03/26/20 Rx Allergies: No Known Drug Allergies Allergy (Verified 03/26/20 00:15) Referrals: [facility] [Primary Care Provider] - 7 Days Dominic Mercado MD [Active] - 7 Days Disposition: HOME Quality CORE MEASURES:: N/A
--- NOTE | 2020-03-29 23:38 | PQF ---
Dear : Ino Aguilar Date 03/30/2020 Please exercise your independent, professional judgment in responding to the clarification form. Clinical indicators are provided on the bottom of this form for your review Can you please further clarify the etiology of SBO? Please check appropriate box(es): [ ] Partial SBO due to Inguinal hernia [ ] Partial SBO due to Cholelithiasis [ ] Partial SBO due to Diverticulosis [ ] Partial SBO due to please specify [ ] Other diagnosis please specify [ x ] Unable to determine - Please forward to surgery for further clarification Physician Signature: Date/Time: For continuity of documentation, please document condition throughout progress notes and discharge summary. Thank You. To be completed by CDI/Coding staff for physician review: Present Clinical Indicators - Signs / Symptoms / Labs Results and Location in Medical Record [ x ] Partial SBO resolving PN opg.1 03/28 [ x ] Small bowel obstruction with transition point in the right lower quadrant of the abdomen Abdomen /pelvis CT [ x ] Abdominal pain H and P pg.1 [ x ] Partial small bowel obstruction, uncertain etiology PN 03/27 pg.1 [ x ] Dilated small bowel distally decompensated nonobstructing left inguinal hernia, Consult Dr. Crocker pg.2 [ x ] presents for reevaluation with continued vomiting ED Notes 03/25 [ x ] CC: abdominal pain HP 03/26 Present Risk Factors Results and Location in Medical Record [ x ] Left inguinal hernia HP 03/26 [ x ] Bilateral renal cyst HP 03/26 [ x ] cholelithiasis HP 03/26 [ x ] Diverticulosis HP 03/26 [ x ] 79 years old male HP 03/26 Present Treatments Results and Location in Medical Record [ x ] Surgery Consult Dr. Mercado 03/26 [ x ] NPO H and P pg.1 [ x ] IV Fluids MAR [ x ] Zofran 4mg IV MAR [ x ] Morphine 2gm IV MAR CDS/Pnp Signature: Sid Pabon Phone #: ext [phone] Date This is a permanent part of the Medical Record [facility]
--- NOTE | 2020-03-30 17:42 | PQF ---
Dear : Dominic Mercado Date 03/30/2020 Please exercise your independent, professional judgment in responding to the clarification form. Clinical indicators are provided on the bottom of this form for your review Can you please further clarify the etiology of SBO? Please check appropriate box(es): [ ] Partial SBO due to Inguinal hernia [ ] Partial SBO due to Cholelithiasis [ ] Partial SBO due to please specify [ ] Other diagnosis please specify [ ] Unable to determine Physician Signature: Date/Time: For continuity of documentation, please document condition throughout progress notes and discharge summary. Thank You. To be completed by CDI/Coding staff for physician review: Present Clinical Indicators - Signs / Symptoms / Labs Results and Location in Medical Record [ x ] Partial SBO resolving PN opg.1 03/28 [ x ] Small bowel obstruction with transition point in the right lower quadrant of the abdomen Abdomen /pelvis CT [ x ] Abdominal pain H and P pg.1 [ x ] Partial small bowel obstruction, uncertain etiology PN 03/27 pg.1 [ x ] Dilated small bowel distally decompensated nonobstructing left inguinal hernia, Consult Dr. Crocker pg.2 [ x ] presents for reevaluation with continued vomiting ED Notes 03/25 [ x ] CC: abdominal pain HP 03/26 Present Risk Factors Results and Location in Medical Record [ x ] Left inguinal hernia HP 03/26 [ x ] Bilateral renal cyst HP 03/26 [ x ] cholelithiasis HP 03/26 [ x ] Diverticulosis HP 03/26 [ x ] 79 years old male HP 03/26 Present Treatments Results and Location in Medical Record [ x ] Surgery Consult Dr. Mercado 03/26 [ x ] NPO H and P pg.1 [ x ] IV Fluids MAR [ x ] Zofran 4mg IV MAR [ x ] Morphine 2gm IV MAR CDS/Water/Wastewater Project Manager Signature: Sid Pabon Phone #: ext [phone] Date This is a permanent part of the Medical Record [facility]
--- NOTE | 2020-04-06 13:18 | EKG ---
Test Reason : Blood Pressure : / mmHG Vent. Rate : 102 BPM Atrial Rate : 102 BPM P-R Int : 138 ms QRS Dur : 082 ms QT Int : 360 ms P-R-T Axes : -02 -39 097 degrees QTc Int : 469 ms Sinus tachycardia with occasional Premature ventricular complexes Left axis deviation Inferior infarct , age undetermined Anterior infarct , age undetermined Abnormal ECG Confirmed by ANN FELDER ([id number]), photography editor BYRON AMADO ([id number]) on 04/06/2020 1:18:11 PM Referred By: Confirmed By:ANN Canales
== END 2020-03-28 17:12 | disposition home or self-care (01) | DRG 389 ==
LOC: ERS 20:08 → SURG B 22:41
PROVIDERS: ADMIT Internal Medicine; ATTEND Internal Medicine
DX: K56.51 Intestinal adhesions [bands], with partial obstruction (principal); E87.1 Hypo-osmolality and hyponatremia; E87.2 Acidosis; N17.9 Acute kidney failure, unspecified; Z20.822 Contact with and (suspected) exposure to COVID-19; E87.6 Hypokalemia; E83.42 Hypomagnesemia; E87.5 Hyperkalemia; D53.9 Nutritional anemia, unspecified; I10 Essential (primary) hypertension; N28.1 Cyst of kidney, acquired; K57.30 Diverticulosis of large intestine without perforation or abscess without bleeding; K80.20 Calculus of gallbladder without cholecystitis without obstruction; K59.00 Constipation, unspecified; K40.90 Unilateral inguinal hernia, without obstruction or gangrene, not specified as recurrent; Z85.820 Personal history of malignant melanoma of skin; Z79.899 Other long term (current) drug therapy
CPT/HCPCS: 36415; 71045; 74177; 74250; 80048; 80053; 83605; 83690; 83735; 84100; 85025; 86140; 87635; 93005; 96374; J1650; J2185; J2270; J2405; J3475; J3480; J7050; Q9967; U0003; U0005